=== PATIENT | female | born 1995 | race Caucasian/White ===

== ENCOUNTER 2016-08-29 15:09 | Inpatient (IN) | payer MEDICAID ==
[~2016-08-29] VITALS: Ht 152.4 cm; Wt 83.9 kg
[~2016-08-29 15:09] MED LIST: LACTATED RINGER'S 1,000 ML IV PRN
[2016-08-29] MEDS ORDERED: OXYTOCIN 30 UNITS/LR 500 ML IV SCH (15:30)
[2016-08-29] MEDS ORDERED: CARBOPROST 250 MCG INJ IM PRN (15:30)
[2016-08-29] MEDS ORDERED: ACETAMINOPHEN/CODEINE #3 TAB PO PRN (15:30)
[2016-08-29] MEDS ORDERED: MISOPROSTOL 200 MCG TAB PR PRN (15:30)
[2016-08-29] MEDS ORDERED: BUTORPHANOL 2 MG INJ IV PRN ×2 (15:30)
[2016-08-29] MEDS ORDERED: METHYLERGONOVINE 0.2 MG INJ IM PRN (15:30)
[2016-08-29] MEDS ORDERED: IBUPROFEN 600 MG TAB PO PRN (15:30)
[2016-08-29] MEDS ORDERED: OXYTOCIN 30 UNITS/LR 500 ML IV PRN (15:30)
[2016-08-29] MEDS ORDERED: LIDOCAINE 1% (MPF) 30 ML INJ INJ PRN (15:30)
[2016-08-29 15:48] VITALS: Ht 152.4 cm; Wt 83.9 kg
[2016-08-29 15:49] VITALS: BP 118/73; PULSE 115; RESP 20
--- NOTE | 2016-08-29 16:14 | TRIAGE ---
OB Triage Datetime Report Generated by CPN: 08/29/2016 16:14 Datetime: 08/29/2016 15:40 Labor Evaluation Frequency: 4-6 Monitor Mode: External Duration (sec)2399: 60-120 Quality: Strong Pattern: Normal: <= 5 Contractions in 10 Minutes Resting Tone [place]: Relaxed Heart Rate FHR Baseline Rate: 155 Monitor Mode: External US Variability: Moderate 6-25 bpm Accelerations: 15X15 Decelerations: Variable Category: Category II Datetime: 08/29/2016 15:37 Comments: LOSS OF CONTACT Datetime: 08/29/2016 15:32 Pain Assessment Pain Scale: 8 Pain Presence: Intermittent Pain Type: Contraction Pain Location: Abdomen; Back Pain Goal: 2 Pain Relief Measures: Comfort Measures Datetime: 08/29/2016 15:23 Maternal Assessment Level of Consciousness: Fully Conscious DTR's/Clonus: DTRs 2+; No Clonus Headache: Denies Blurred Vision: No Respiratory Effort: Unlabored; Regular Rhythm; Equal Expansion Breath Sounds, Left: Clear and Equal Breath Sounds, Right: Clear and Equal Nausea/Vomiting: Denies RUQ Epigastric Pain: Denies Facial Edema: None Fall Risk Assessment History of Falling: (0) No Secondary Diagnosis: (0) No Ambulatory Aid: (0) Bedrest/Nurse Assist IV Therapy: (0) No Gait: (0) Normal/Bedrest/Immobile Mental Status: (0) Oriented to Own Ability Fall Score: 0 Fall Risk Score Definition: No Risk: No action required Datetime: 08/29/2016 15:22 Stage of : OB Triage Maternal Assessment Level of Consciousness: Fully Conscious DTR's/Clonus: DTRs 2+; No Clonus Headache: Denies Blurred Vision: No Respiratory Effort: Unlabored; Regular Rhythm; Equal Expansion Breath Sounds, Left: Clear and Equal Breath Sounds, Right: Clear and Equal Nausea/Vomiting: Denies RUQ Epigastric Pain: Denies Lower Extremities Edema: Bilateral Lower Extremities Degree: 1+ Upper Extremities Edema: None Degree: None Facial Edema: None Temperature Route: Axillary Fall Risk Assessment History of Falling: (0) No Secondary Diagnosis: (0) No Ambulatory Aid: (0) Bedrest/Nurse Assist IV Therapy: (0) No Gait: (0) Normal/Bedrest/Immobile Mental Status: (0) Oriented to Own Ability Fall Score: 0 Fall Risk Score Definition: No Risk: No action required Datetime: 08/29/2016 15:21 Time of Arrival: 08/29/2016 15:01 EGA: 38.0 Arrived By: Ambulatory Arrived From: Home Chief Complaint: uc's (Annotations: Data stored by CPN on behalf of user) Movement: Present Contractions: Irregular Time Contractions Began: 08/28/2016 13:00 Contractions: 4-6 Rupture of Membranes: Ruptured Vaginal Bleeding: Normal Show Vaginal Discharge: Present Recent Sexual Intercouse: Denies Abdominal Trauma: Not Applicable Patient Complaints: Contractions; Back Pain Time Provider Notified: 08/29/2016 15:29 Provider Notified: DR. LARSEN Initial Plan: SVE, nst Datetime: 08/29/2016 15:17 Vaginal Exam Dilatation (cms): 1.5 Effacement (%): 80 Station: -3 Exam By: MICA Cervix, Consistency: Soft
[2016-08-29] MEDS ORDERED: PRENAT PO (16:31)
--- NOTE | 2016-08-29 17:17 | RADRPT ---
PROCEDURE: US biophysical profile. CLINICAL INDICATION: Decreased motion. TECHNIQUE: Multiple sonographic images of the uterus were obtained. The images were revi ewed on a PACS workstation. COMPARISON: No prior studies are available for comparison. FINDINGS: There is a single live intrauterine gestation. heart rate is 150 beats per minute. The position is cephalic. The placenta is anterior grade II with no abruption or previa. The NICOLETTE is 13.9 cm. (Normal = 5-20 cm.) Breathing Movement: 2 Gross Body Movement: 2 Tone: 2 Qualitative Amniotic Fluid Volume: 2 TOTAL: 8 IMPRESSION: 1. The biophysical score is 8/8. RPTAT: QQ .Leonel Antonio MD, MD Date Time Electronically viewed and signed by .Leonel Antonio MD, on 08/29/2016 17:16 .R/
[2016-08-29] MEDS: LACTATED RINGER'S 1,000 ML IV SCH (18:54)
[2016-08-29 18:57] LABS: ADD SCAN DIFF NO
[2016-08-29 19:05] LABS: BASOPHILS % 0.2 % (0.0-2.0); EOSINOPHILS # 0.1 10^3/ul (0.0-0.5); EOSINOPHILS % 0.7 % (0.0-7.0); HEMATOCRIT 34.9 % (37.0-47.0); HEMOGLOBIN 11.9 g/dl (12.0-16.0); LYMPHOCYTES % 16.2 % (15.0-51.0); MEAN CORPUSCULAR HEMOGLOBIN 30.1 pg (29.0-33.0); MEAN CORPUSCULAR HGB CONC 34.1 g/dl (32.0-37.0); MEAN CORPUSCULAR VOLUME 88.1 fl (82.0-101.0); MEAN PLATELET VOLUME 12.3 fl (7.4-10.4); MONOCYTES % 7.9 % (0.0-11.0); NEUTROPHILS % 74.6 % (39.0-77.0); PLATELET COUNT 223 10^3/UL (140-415); RED BLOOD COUNT 3.96 10^6/ul (4.20-5.40); RED CELL DISTRIBUTION WIDTH 14.6 % (11.5-14.5); WHITE BLOOD COUNT 12.1 10^3/ul (4.8-10.8)
[2016-08-29 20:18] LABS: PROTIME 12.4 Sec (12.2-14.2)
[2016-08-29 20:19] LABS: INR 0.92; PARTIAL THROMBOPLASTIN TIME 27.5 Sec (25.0-35.0)
[2016-08-30] MEDS: LACTATED RINGER'S 1,000 ML IV SCH (00:53)
[2016-08-30] MEDS ORDERED: MINERAL OIL LIGHT 10 ML VIAL TOP ONE (04:30)
[2016-08-30] MEDS ORDERED: MINERAL OIL LIGHT 10 ML VIAL TOP SCH (04:30)
[2016-08-30] MEDS: OXYTOCIN 30 UNITS/LR 500 ML IV SCH ×2 (04:51→06:20)
[2016-08-30] MEDS ORDERED: LACTATED RINGER'S 1,000 ML IV* SCH (05:48)
[2016-08-30] MEDS ORDERED: BENZOCAINE 20% 56 ML SPRAY TOP PRN (06:00)
[2016-08-30] MEDS ORDERED: WITCH HAZEL/GLYCERIN PAD PR PRN (06:00)
[2016-08-30] MEDS ORDERED: MISOPROSTOL 200 MCG TAB PR PRN (06:00)
[2016-08-30] MEDS ORDERED: OXYTOCIN 30 UNITS/LR 500 ML IV PRN (06:00)
[2016-08-30] MEDS ORDERED: ONDANSETRON 4 MG INJ IV PRN (06:00)
[2016-08-30] MEDS ORDERED: DIPHENHYDRAMINE 25 MG CAP PO PRN (06:00)
[2016-08-30] MEDS ORDERED: DIBUCAINE 1% 30 GM OINT PR PRN (06:00)
[2016-08-30] MEDS ORDERED: LANOLIN 7 GM TUBE TOP PRN (06:00)
[2016-08-30] MEDS ORDERED: METHYLERGONOVINE 0.2 MG INJ IM PRN (06:00)
[2016-08-30] MEDS: IBUPROFEN 600 MG TAB PO SCH ×2 (06:00→12:00)
[2016-08-30] MEDS ORDERED: CARBOPROST 250 MCG INJ IM PRN (06:00)
[2016-08-30 06:20] VITALS: BP 117/63; PULSE 80; RESP 18
--- NOTE | 2016-08-30 06:30 | HP ---
Date/Time of Note Date/Time of Note DATE: 08/30/16 TIME: 06:22 OB - History Hx of Present Free Text/Dictation Patient seen per Dr. Bermudez request. FHR: Category I. SVE: /+1/ceph. Recommended start pushing. H&P and exam on admission: 20 Year-old G1 with SIUP at 38 1/7 weeks presents with a chief complaint of leakage of fluid since 12:00 noon yesterday. She has been receiving her care with Dr. Bermudez. She states good movement. She denies nausea, vomiting, shortness of breath, chest pain, and abdominal pain between contractions, headache, visual changes, vaginal bleeding. : 1 Care: Good Care Ultrasounds: Normal mid trimester US Obstetrical Complications: None Medical Complications: None Past Family/Social History * Past Medical, Surgical, Family and Obstetric Histories reviewed from chart. Blood Type: O+ Rubella: immune RPR/VDRL: Negative GBS Status: Negative HBsAG: Negative OB Admission Exam Vital Signs Vital Signs Vital Signs Date Time Temp Pulse Resp B/P Pulse Ox O2 Delivery O2 Flow Rate FiO2 08/29/16 15:49 99.2 115 20 118/73 98 Room Air Physical Exam HEENT: WNL Heart: Rhythm Normal Lungs: Clear Abdomen: WNL Extremities: Normal Cervical Dilatation: 2cm Effacement: 50% Station: -2 Membranes: Ruptured Amniotic Fluid: Clear Heart Rate: 140's Accelerations: Accelerations Present Decelerations: No Decelerations Varibility: Moderate Contractions on Admission: 6-10 Minutes Apart Intensity: Moderate Last 72 hours Lab Results CBC & BMP 08/29/16 18:00 OB Assessment/Plan Other plan: 20 Year-old G1 with SIUP at 38 1/7 weeks with SROM - FHR: No sign of metabolic acidosis- Category I - Continious EFM, toco - CBC, blood type and screen - Analgesia options with R/B/A discussed in detail with patient. She is not interested - Please see the orders - O+/Rubella: Immune/GBS negative Admission, procedures, expectations, risks and possible complications have been discussed in detail with the patient. Risk of vaginal delivery including but not limited to bleeding, infection, cervical laceration, placental retention, injury to fetus, blood transfusion, blood transfusion related infection, risk of anesthesia, adhesion, cervical laceration, episiotomy/laceration, possible delivery with risk of bleeding, infection, injury to other organs ( bowel, bladder, ureter, vessels, nerves), injury to fetus, blood transfusion, blood transfusion related infection, risk of anesthesia, scar and hernia formation, needs for future , removal of uterus or any other indicated surgery discussed with the patient. She expressed understanding and repeats the risks. All of her questions were answered; all appropriate consents will be signed. PHYSICIAN'S VERIFICATION OF INFORMED CONSENT: The patient was counseled regarding the procedure, its indications, risks, potential complications and alternatives and any questions were answered. Consent was obtained. PLANNED PROCEDURE/TREATMENT: Vaginal delivery with possible vacuum/forceps delivery episiotomy, repair of laceration possible delivery PHYSICIAN'S VERIFICATION OF INFORMED CONSENT FOR BLOOD TRANSFUSION: There is a reasonable possibility that blood transfusion will be necessary as a result of the patient's procedure. I have discussed the following with the patient/patient's legal videotape sales representative: An explanation of the benefits and risks of the transfusion of blood or blood products and the possible alternatives. Al questions have been answered to the patient's/patients legal representatives satisfaction. INFORMED CONSENT: The patient has been informed of: - The nature of the proposed care, treatment, services, medic- Potential benefits, risks or side effects, including potential problems related to recuperation. - The likelihood of achieving care treatment and service goals. - Reasonable alternatives to the proposed care, treatment and service. - The relevant risks, benefits and side effects related to alternatives, including the possible results of not receiving care, treatment and services. - When indicated, any limitations on the confidentiality of information learned from or about the patient. - If appropriate, the risks, benefits and alternatives of the drugs to be used for sedation/analgesia including moderate sedation. - If appropriate, patient has been provided information on the risks, benefits and alternatives to the transfusion of blood and/or blood products. OLIVIA PEREZ Aug 30, 2016 06:30
--- NOTE | 2016-08-30 06:34 | LDN ---
Date/Time of Note Date/Time of Note DATE: 08/30/16 TIME: 06:30 Delivery Summary 20 y/o G1 with SIUP at 38 1/7 weeks delivered a female over right mediolat episiotomy at 04: 19. Weight: 6 lbs 7 oz Placenta Delivered: Spontaneously Meconium: none Anesthesia type: Local Estimated blood loss: 280 Sponge & Needle done & correct: Yes All needle counts correct: Yes Any foreign bodies felt in the: No Problems: Delivery Information Sex Infant Sex: female Apgars 1 Minute: 9 5 Minute: 9 10 Minute: 10 Suctioning Nose & mouth suctioned at homa: Yes Umbilical Cord Umbilical cord with: 3 Vessels Cord presentations: no nuchal cord Cord Blood was obtained: Yes OLIVIA PEREZ Aug 30, 2016 06:34
[2016-08-30 08:00] VITALS: BP 110/67
[2016-08-30] MEDS: SENNA/DOCUSATE NA (8.6MG/50MG) TAB PO SCH ×2 (09:00→20:56)
[2016-08-30 12:00] VITALS: BP 114/64; PULSE 89; RESP 18
[2016-08-30 16:00] VITALS: BP 107/65; PULSE 90; RESP 18
[2016-08-30 16:39] VITALS: BP 107/65; PULSE 90; RESP 18
[2016-08-30 20:00] VITALS: BP 111/68; PULSE 96; RESP 18
[2016-08-31 04:00] VITALS: BP 94/57; PULSE 81; RESP 18
[2016-08-31] MEDS: IBUPROFEN 600 MG TAB PO SCH ×4 (06:10→17:39)
[2016-08-31 07:30] VITALS: BP 113/70; PULSE 78; RESP 18
[2016-08-31 08:00] LABS: ADD SCAN DIFF NO
[2016-08-31 08:15] LABS: BASOPHILS % 0.2 % (0.0-2.0); EOSINOPHILS # 0.1 10^3/ul (0.0-0.5); EOSINOPHILS % 0.7 % (0.0-7.0); HEMATOCRIT 30.9 % (37.0-47.0); HEMOGLOBIN 10.1 g/dl (12.0-16.0); LYMPHOCYTES # 2.1 10^3/ul (0.8-2.9); LYMPHOCYTES % 18.6 % (15.0-51.0); MEAN CORPUSCULAR HEMOGLOBIN 28.9 pg (29.0-33.0); MEAN CORPUSCULAR HGB CONC 32.7 g/dl (32.0-37.0); MEAN CORPUSCULAR VOLUME 88.3 fl (82.0-101.0); MONOCYTE # 0.8 10^3/ul (0.3-0.9); MONOCYTES % 7.2 % (0.0-11.0); NEUTROPHIL # 8.4 10^3/ul (1.6-7.5); NEUTROPHILS % 72.9 % (39.0-77.0); PLATELET COUNT 189 10^3/UL (140-415); RED CELL DISTRIBUTION WIDTH 14.9 % (11.5-14.5); WHITE BLOOD COUNT 11.5 10^3/ul (4.8-10.8)
[2016-08-31] MEDS: SENNA/DOCUSATE NA (8.6MG/50MG) TAB PO SCH ×2 (09:00→21:00)
[2016-08-31 16:15] VITALS: BP 109/56; PULSE 84; RESP 19
[2016-08-31 19:45] VITALS: BP 115/60; PULSE 115; RESP 20
[2016-08-31] MEDS: ACETAMINOPHEN 325 MG TAB PO PRN (20:04)
[2016-09-01 00:15] VITALS: BP 122/72; PULSE 117; RESP 20
[2016-09-01] MEDS: IBUPROFEN 600 MG TAB PO SCH ×4 (00:54→17:17)
[2016-09-01] MEDS ORDERED: GENTAMICIN 80 MG INJ IV SCH (02:00)
[2016-09-01 02:24] LABS: ADD SCAN DIFF NO
[2016-09-01 02:29] LABS: BASOPHILS % 0.2 % (0.0-2.0); EOSINOPHILS # 0.1 10^3/ul (0.0-0.5); EOSINOPHILS % 0.4 % (0.0-7.0); HEMATOCRIT 31.4 % (37.0-47.0); HEMOGLOBIN 10.5 g/dl (12.0-16.0); LYMPHOCYTES % 7.6 % (15.0-51.0); MEAN CORPUSCULAR HEMOGLOBIN 29.3 pg (29.0-33.0); MEAN CORPUSCULAR HGB CONC 33.4 g/dl (32.0-37.0); MEAN CORPUSCULAR VOLUME 87.7 fl (82.0-101.0); MEAN PLATELET VOLUME 11.9 fl (7.4-10.4); MONOCYTES % 7.6 % (0.0-11.0); NEUTROPHIL # 11.5 10^3/ul (1.6-7.5); NEUTROPHILS % 83.6 % (39.0-77.0); PLATELET COUNT 215 10^3/UL (140-415); RED BLOOD COUNT 3.58 10^6/ul (4.20-5.40); RED CELL DISTRIBUTION WIDTH 14.5 % (11.5-14.5); WHITE BLOOD COUNT 13.7 10^3/ul (4.8-10.8)
[2016-09-01 02:36] LABS: POTASSIUM 3.4 mmol/L (3.5-5.1)
[2016-09-01 02:39] LABS: CREATININE 0.48 mg/dl (0.44-1.00)
[2016-09-01 02:40] LABS: CALCIUM 8.9 mg/dl (8.4-10.2)
[2016-09-01] MEDS ORDERED: CLINDAMYCIN 900 MG/D5W (PMX) 50 ML IVPB SCH (03:00)
[2016-09-01] MEDS ORDERED: CLINDAMYCIN 900 MG INJ IV SCH (03:00)
[2016-09-01] MEDS: GENTAMICIN 80 MG/NS (PMX) 50 ML IVPB SCH ×3 (03:41→18:36)
[2016-09-01 03:45] VITALS: BP 99/58; PULSE 102; RESP 18
[2016-09-01 07:30] VITALS: BP 102/58; PULSE 94; RESP 18
--- NOTE | 2016-09-01 08:18 | RADRPT ---
PROCEDURE: XR Chest. CLINICAL INDICATION: Fever TECHNIQUE: PA and lateral views of the chest were obtained. COMPARISON: None. FINDINGS: No focal airspace opacification, pleural effusion or pneumothorax is seen. The cardiomediastinal si lhouette is within normal limits for size. The osseous structures are unremarkable. IMPRESSION: No radiographic evidence of acute cardiopulmonary disease. RPTAT: HH .Carolina Ayala MD, MD Date Time Electronically viewed and signed by .Carolina Ayala MD, on 09/01/2016 08:18 .G/
[2016-09-01] MEDS: SENNA/DOCUSATE NA (8.6MG/50MG) TAB PO SCH ×2 (09:00→21:53)
[2016-09-01] MEDS ORDERED: DIPHTH/TET/ACEL PERTUSS (ADULT) 0.5 ML VIAL IM* ONE (09:00)
[2016-09-01] MEDS ORDERED: INFLUENZA VIRUS VACCINE 0.5 ML SYG IM* ONE (11:30)
--- NOTE | 2016-09-01 11:40 | DS ---
Date/Time of Note Date/Time of Note DATE: 09/01/16 TIME: 11:38 Obstetrical Discharge Record Final Diagnosis Final Diagnosis: Term delivered Vaginal Delivery Obstetrical Delivery: Spontaneous Condition on Discharge Physical Assessment Last Vitals: Post normal vaginal delivery day 2 VS stable abdomen soft uterus firm lochia normal extremity normal patient discharge home with follow-up instruction to be seen at the clinic in 2 weeks Laboratory Tests Test 09/01/16 01:40 Anion Gap 13 Basophils # 0.010^3/ul Basophils % 0.2% Blood Urea Nitrogen 7mg/dl Calcium Level 8.9mg/dl Carbon Dioxide Level 27mmol/L Chloride Level 103mmol/L Creatinine 0.48mg/dl Eosinophils # 0.110^3/ul Eosinophils % 0.4% Glucose Level 103mg/dl Hematocrit 31.4% Hemoglobin 10.5g/dl Lymphocytes # 1.010^3/ul Lymphocytes % 7.6% Mean Corpuscular Hemoglobin 29.3pg Mean Corpuscular Hemoglobin Concent 33.4g/dl Mean Corpuscular Volume 87.7fl Mean Platelet Volume 11.9fl Monocytes # 1.010^3/ul Monocytes % 7.6% Neutrophils # 11.510^3/ul Neutrophils % 83.6% Nucleated Red Blood Cells # 0.010^3/ul Nucleated Red Blood Cells % 0.0/100WBC Platelet Count 38427^3/UL Potassium Level 3.4mmol/L Red Blood Count 3.5810^6/ul Red Cell Distribution Width 14.5% Sodium Level 140mmol/L White Blood Count 13.710^3/ul Current Medications Medications (Trade) Dose Ordered Sig/Rosa Route PRN Reason Start Time Stop Time Status Last Admin Dose Admin Lactated Ringer's (Lr) 1,000 ml @ 125 mls/hr Q8H IV 08/29/16 15:30 08/31/16 07:43 DC 08/30/16 00:53 Butorphanol Tartrate (Stadol) 1 mg Q2H PRN IV PAIN 08/29/16 15:30 08/31/16 07:43 DC Butorphanol Tartrate (Stadol) 2 mg Q2H PRN IV PAIN 08/29/16 15:30 08/31/16 07:43 DC 08/29/16 23:36 Lidocaine 30 ml 30 ml ONCE PRN INJ EPISIOTOMY/TEARING 3/13/17 15:30 08/31/16 07:43 DC Oxytocin/Lactated Ringer's 500 ml @ 125 mls/hr ONCE -MAY REPEAT X1 IV 08/29/16 15:30 08/31/16 07:43 DC 08/30/16 04:27 Oxytocin/Lactated Ringer's 500 ml @ 125 mls/hr ONCE IV 08/29/16 15:30 08/31/16 07:43 DC 08/30/16 06:20 Ibuprofen (Motrin) 600 mg ONCE PRN PO Mild Pain (Pain Score 1-3) 08/29/16 15:30 Acetaminophen/ Codeine Phosphate 2 tab 2 tab ONCE PRN PO Moderate to Severe Pain (4-10) 08/29/16 15:30 08/31/16 07:43 DC Lactated Ringer's 1,000 ml @ 2,000 mls/hr Q30M PRN IV PRE-EPIDURAL BOLUS 08/29/16 15:00 08/31/16 07:43 DC Oxytocin/Lactated Ringer's 500 ml @ 0 mls/hr ONCE PRN IV For Hemorrhage Management 08/29/16 15:30 08/31/16 07:43 DC Methylergonovine Maleate (Methergine) 0.2 mg ONCE PRN IM VAGINAL BLEEDING 08/29/16 15:30 08/31/16 07:43 DC 08/30/16 04:52 Carboprost Tromethamine (Hemabate) 250 mcg ONCE PRN IM VAGINAL BLEEDING 08/29/16 15:30 08/31/16 07:43 DC Misoprostol (Cytotec) 1,000 mcg ONCE PRN AL VAGINAL BLEEDING 08/29/16 15:30 08/31/16 07:43 DC 08/30/16 04:53 Mineral Oil (Muri-Lube) ONCE ONCE TOP 08/30/16 04:30 08/30/16 04:30 DC Mineral Oil ONCE TOP 08/30/16 04:30 08/31/16 04:29 DC Lactated Ringer's (Lr) 1,000 ml @ 125 mls/hr Q8H IV* 08/30/16 05:48 08/31/16 07:43 DC 08/30/16 10:53 Ibuprofen (Motrin) 600 mg Q6 PO 08/30/16 06:00 09/01/16 05:31 Ondansetron HCl (Zofran Inj) 4 mg Q6H PRN IV NAUSEA AND/OR VOMITING 08/30/16 06:00 Diphenhydramine HCl (Benadryl) 25 mg Q6H PRN PO PRURITUS 08/30/16 06:00 Senna/Docusate Sodium (Senokot-S) 1 tab BID PO 08/30/16 09:00 08/30/16 20:56 Witch Abril/ Glycerin (Tucks Pads) 1 pad BEDSIDE MEDICATION PRN AL HEMORRHOID/EPISIOTMY PAIN 08/30/16 06:00 Benzocaine (Dermoplast [place]) 1 spray BEDSIDE MEDICATION PRN TOP HEMORRHOID/EPISIOTMY PAIN 08/30/16 06:00 Dibucaine (Nupercainal) 1 applic BEDSIDE MEDICATION PRN AL HEMORRHOID/EPISIOTMY PAIN 08/30/16 06:00 Lanolin ([id number]-Cxwbrp) 1 applic BEDSIDE MEDICATION PRN TOP BEDSIDE FOR MOHAMUD TO NIPPLES 08/30/16 06:00 Diphtheria/ Tetanus/Acell Pertussis (Adacel) 0.5 ml ONCE ONCE IM* 09/01/16 09:00 09/01/16 09:01 DC Acetaminophen 650 mg 650 mg Q4H PRN PO ELEVATED TEMPERATURE 08/30/16 06:00 08/31/16 20:04 Oxytocin/Lactated Ringer's 500 ml @ 0 mls/hr ONCE PRN IV For Hemorrhage Management 08/30/16 06:00 Methylergonovine Maleate (Methergine) 0.2 mg ONCE PRN IM VAGINAL BLEEDING 08/30/16 06:00 Carboprost Tromethamine (Hemabate) 250 mcg ONCE PRN IM VAGINAL BLEEDING 08/30/16 06:00 Misoprostol (Cytotec) 1,000 mcg ONCE PRN AL VAGINAL BLEEDING 08/30/16 06:00 Influenza Virus Vaccine (Fluzone) 0.5 ml ONCE ONCE IM* 09/01/16 11:30 09/01/16 11:31 DC Gentamicin Sulfate (Gentamicin) 80 mg TID IV 09/01/16 02:00 09/01/16 02:00 DC Clindamycin Phosphate 900 mg 900 mg TID IV 09/01/16 03:00 09/01/16 03:00 DC Gentamicin Sulfate 50 ml @ 100 mls/hr Q8H IVPB 09/01/16 02:00 09/01/16 10:51 Clindamycin HCl/ Dextrose (Cleocin 900 Mg/ D5W (Pmx)) 50 ml @ 50 mls/hr Q8H IVPB 09/01/16 03:00 09/01/16 05:29 Voiding: Yes Fundus: Firm Calf Tenderness: No Patient Condition: Good DICKSON LARSEN MD Sep 01, 2016 11:40
--- NOTE | 2016-09-01 11:41 | PD.PPDC ---
BANQUET [employer] COOK Discharge Instruction Condition Patient Condition: Good Activity/Restrictions Activity: Normal Activity May Shower Restrictions: No Exercising No Lifting No Driving No Sexual Activity Nothing in the Vagina No [place] No Tampons, douche Follow-up Follow-up with Physician: 2, Week/Weeks Return to clinic for DIGITAL TECH Instructions: Fever greater than 101 Worsening abdominal pain Excessive Vaginal Bleeding More than 2 pads per hour Unable to tolerate diet OB Instructions: Breast Tenderness Blurried Vision Headache DICKSON LARSEN MD Sep 01, 2016 11:41
[2016-09-01 11:46] VITALS: BP 110/76; PULSE 108; RESP 19
--- NOTE | 2016-09-01 12:05 | QN ---
Documentation Comment Day 2 post normal vaginal delivery, spiked temperature 100.2 on August 31 at approximately 19:45 and another spike of temperature to 102.7 at 00 15 today currently on gentamicin and clindamycin temperature at 8:00 this morning 98.5, urine culture, blood culture. Was ordered by the physician weapons officer naval activity advised to continue present antibiotic therapy till culture result is available. DICKSON LARSEN MD Sep 01, 2016 12:05
[2016-09-01 12:08] LABS: ADD SCAN DIFF NO
[2016-09-01 12:10] LABS: BASOPHILS % 0.2 % (0.0-2.0); EOSINOPHILS # 0.1 10^3/ul (0.0-0.5); EOSINOPHILS % 0.7 % (0.0-7.0); HEMATOCRIT 33.2 % (37.0-47.0); HEMOGLOBIN 11.1 g/dl (12.0-16.0); LYMPHOCYTES # 1.6 10^3/ul (0.8-2.9); LYMPHOCYTES % 11.1 % (15.0-51.0); MEAN CORPUSCULAR HGB CONC 33.4 g/dl (32.0-37.0); MEAN CORPUSCULAR VOLUME 89.7 fl (82.0-101.0); MEAN PLATELET VOLUME 11.6 fl (7.4-10.4); MONOCYTE # 1.2 10^3/ul (0.3-0.9); MONOCYTES % 7.9 % (0.0-11.0); NEUTROPHIL # 11.6 10^3/ul (1.6-7.5); NEUTROPHILS % 79.4 % (39.0-77.0); PLATELET COUNT 211 10^3/UL (140-415); RED CELL DISTRIBUTION WIDTH 14.7 % (11.5-14.5); WHITE BLOOD COUNT 14.6 10^3/ul (4.8-10.8)
[2016-09-01] MEDS: CLINDAMYCIN 900 MG/D5W (PMX) 50 ML IVPB SCH ×2 (13:15→21:53)
[2016-09-01 16:00] VITALS: BP 124/69; PULSE 97; RESP 19
[2016-09-01 20:15] VITALS: BP 100/55; PULSE 118; RESP 20
[2016-09-01] MEDS: ACETAMINOPHEN 325 MG TAB PO PRN (21:53)
[2016-09-02] MEDS: LACTATED RINGER'S 1,000 ML IV SCH ×3 (01:24→17:53)
[2016-09-02] MEDS: GENTAMICIN 80 MG/NS (PMX) 50 ML IVPB SCH ×2 (02:12→09:41)
[2016-09-02] MEDS: ACETAMINOPHEN 325 MG TAB PO PRN (03:57)
[2016-09-02 04:00] VITALS: BP 110/64; PULSE 80; RESP 18
[2016-09-02] MEDS: IBUPROFEN 600 MG TAB PO SCH ×5 (04:53→23:38)
[2016-09-02] MEDS: CLINDAMYCIN 900 MG/D5W (PMX) 50 ML IVPB SCH (06:12)
[2016-09-02 08:15] VITALS: BP 106/55; PULSE 89; RESP 18
[2016-09-02] MEDS: SENNA/DOCUSATE NA (8.6MG/50MG) TAB PO SCH ×2 (09:00→23:39)
[2016-09-02 11:54] LABS: ADD SCAN DIFF NO
[2016-09-02 11:58] LABS: BASOPHILS % 0.2 % (0.0-2.0); EOSINOPHILS # 0.2 10^3/ul (0.0-0.5); EOSINOPHILS % 1.9 % (0.0-7.0); HEMATOCRIT 30.1 % (37.0-47.0); HEMOGLOBIN 10.2 g/dl (12.0-16.0); LYMPHOCYTES # 1.6 10^3/ul (0.8-2.9); LYMPHOCYTES % 13.6 % (15.0-51.0); MEAN CORPUSCULAR HEMOGLOBIN 30.1 pg (29.0-33.0); MEAN CORPUSCULAR HGB CONC 33.9 g/dl (32.0-37.0); MEAN CORPUSCULAR VOLUME 88.8 fl (82.0-101.0); MEAN PLATELET VOLUME 11.3 fl (7.4-10.4); MONOCYTE # 1.2 10^3/ul (0.3-0.9); MONOCYTES % 10.2 % (0.0-11.0); NEUTROPHIL # 8.7 10^3/ul (1.6-7.5); NEUTROPHILS % 73.5 % (39.0-77.0); PLATELET COUNT 212 10^3/UL (140-415); RED BLOOD COUNT 3.39 10^6/ul (4.20-5.40); RED CELL DISTRIBUTION WIDTH 14.7 % (11.5-14.5); WHITE BLOOD COUNT 11.8 10^3/ul (4.8-10.8)
[2016-09-02] MEDS: PIPER-TAZO 3.375 GM IV (PMX) 100 ML IVPB SCH ×3 (14:35→23:39)
--- NOTE | 2016-09-02 14:43 | RADRPT ---
PROCEDURE: US Pelvis. CLINICAL INDICATION: 20-year-old female to assess for retained placenta. TECHNIQUE: Multiple sonographic images of the pelvis were obtained utilizing a transabdominal and endovaginal technique. The images were reviewed on a PACS workstation. COMPARISON: Biophysical profile 08/29/2016. FINDINGS: The uterus is visualized and measures 12.7 cm sagittal by 6.5 cm AP by 9 cm transverse.. The endomet rial echo complex is irregular and measures 1.3 cm. There is no evidence for free fluid. The right o vary has a normal echotexture and measures 5.2 x 2.4 by 3.2 cm . The left ovary has a normal echote xture and measures 3.7 x 1.2 by 2 cm. No adnexal masses are noted. IMPRESSION: 1. The major stripe appears slightly asymmetric measuring up to 1.3 cm. Retained products of germaine ption are suspected. (78% specificity with endometrial thickness greater than 10 mm.) RPTAT:AAJJ Physician Carlos A Date Time Electronically viewed and signed by Physician Carlos A on 09/02/2016 14:42 JM/
[2016-09-02 16:36] VITALS: BP 110/62; PULSE 89; RESP 18
[2016-09-02 20:40] VITALS: BP 114/59; PULSE 83; RESP 18
[2016-09-03] VITALS: BP 114/76; PULSE 75; RESP 20
[2016-09-03 04:20] VITALS: BP 106/63; RESP 74
[2016-09-03] MEDS: IBUPROFEN 600 MG TAB PO SCH ×4 (06:48→23:49)
[2016-09-03] MEDS: PIPER-TAZO 3.375 GM IV (PMX) 100 ML IVPB SCH ×4 (06:48→23:49)
[2016-09-03 07:40] LABS: ADD SCAN DIFF NO
[2016-09-03 07:43] LABS: BASOPHILS % 0.3 % (0.0-2.0); EOSINOPHILS # 0.4 10^3/ul (0.0-0.5); EOSINOPHILS % 4.1 % (0.0-7.0); HEMATOCRIT 30.5 % (37.0-47.0); HEMOGLOBIN 10.1 g/dl (12.0-16.0); LYMPHOCYTES # 2.8 10^3/ul (0.8-2.9); LYMPHOCYTES % 27.1 % (15.0-51.0); MEAN CORPUSCULAR HEMOGLOBIN 29.4 pg (29.0-33.0); MEAN CORPUSCULAR HGB CONC 33.1 g/dl (32.0-37.0); MEAN CORPUSCULAR VOLUME 88.7 fl (82.0-101.0); MEAN PLATELET VOLUME 11.6 fl (7.4-10.4); MONOCYTE # 0.9 10^3/ul (0.3-0.9); MONOCYTES % 8.9 % (0.0-11.0); NEUTROPHILS % 58.8 % (39.0-77.0); PLATELET COUNT 252 10^3/UL (140-415); RED BLOOD COUNT 3.44 10^6/ul (4.20-5.40); RED CELL DISTRIBUTION WIDTH 14.8 % (11.5-14.5); WHITE BLOOD COUNT 10.1 10^3/ul (4.8-10.8)
[2016-09-03 08:30] VITALS: BP 130/71; PULSE 75; RESP 18
[2016-09-03] MEDS: LACTATED RINGER'S 1,000 ML IV SCH ×3 (09:00→17:21)
[2016-09-03] MEDS: SENNA/DOCUSATE NA (8.6MG/50MG) TAB PO SCH ×2 (09:00→21:14)
--- NOTE | 2016-09-03 10:15 | PN ---
Date/Time of Note Date/Time of Note DATE: 09/03/16 TIME: 10:14 OB Subjective Subjective Subjective Vital signs stable has been afebrile last 36hours currently on Zosyn with continue with treatment 24 more hours considering discharge tomorrow DICKSON LARSEN MD Sep 03, 2016 10:15
[2016-09-03 16:38] VITALS: BP 127/79; PULSE 79; RESP 18
--- NOTE | 2016-09-03 17:51 | PN ---
DATE: 09/03/2016 SUBJECTIVE: No events overnight. The patient is alert, afebrile, looks comfortable. Denies pain, discomfort. LABORATORY DATA: WBC today 10.1, platelets 252, no shift, no bands. No other labs available. MICROBIOLOGY: Urine culture grew E. coli resistant only to ampicillin. ANTIMICROBIALS: Zosyn. DIAGNOSTICS: Pelvic ultrasound revealed major stripe slightly asymmetric with suspected retained pr oducts of conception. PHYSICAL EXAMINATION: GENERAL: Obese, well-developed, young woman who is alert, in no distress. HEENT: Head atraumatic, normocephalic. Sclerae anicteric. Buccal mucosa pink. NECK: Supple, trachea midline. CHEST: Rise symmetrical. Breath sounds clear. HEART: S1, S2. ABDOMEN: Soft, bowel sounds present. EXTREMITIES: Without cyanosis. ASSESSMENT: 1. Systemic inflammatory response syndrome with fevers and leukocytosis. 2. Escherichia coli urinary tract infection. 3. Status post vaginal delivery. PLAN: The patient remains stable. She is on appropriate antimicrobials. Her ultrasound report ind icates questionable retained products of conception The patient is followed by Dr. Bermudez, who will review it. We will keep her on Zosyn for now and if she is cleared by her BUYING INTERN team, we can send her home on oral Keflex to complete treatment for UTI. Dictated By: PHYLICIA ACOSTA SOLE CEMENTER for LANEY DE LEON/NTS Conf#: [id number] DID#: [id number]
[2016-09-03 19:30] VITALS: BP 133/64; PULSE 83; RESP 20
[2016-09-03] MEDS: ACETAMINOPHEN 325 MG TAB PO PRN (21:13)
[2016-09-04] VITALS: BP 130/65; RESP 20
[2016-09-04] MEDS: LACTATED RINGER'S 1,000 ML IV SCH (01:00)
[2016-09-04 05:01] VITALS: BP 126/75; PULSE 74; RESP 20
[2016-09-04] MEDS: PIPER-TAZO 3.375 GM IV (PMX) 100 ML IVPB SCH ×2 (05:20→12:17)
[2016-09-04] MEDS: IBUPROFEN 600 MG TAB PO SCH ×2 (05:21→12:17)
[2016-09-04 08:00] VITALS: BP 109/67; PULSE 71; RESP 18
[2016-09-04] MEDS: SENNA/DOCUSATE NA (8.6MG/50MG) TAB PO SCH (09:00)
--- NOTE | 2016-09-04 12:12 | DS ---
Date/Time of Note Date/Time of Note DATE: 09/04/16 TIME: 12:10 Obstetrical Discharge Record Final Diagnosis Final Diagnosis: Term delivered Vaginal Delivery Obstetrical Delivery: Spontaneous Complications Infection (UTI) Augmentation: Yes Induction: No Condition on Discharge Physical Assessment Last Vitals: T=98.0 BP 109/67 Voiding: Yes Bowel Movement: Yes Breast: Engorged Fundus: Firm Episiotomy: Intact Calf Tenderness: No Patient Condition: Good (Will go home with a prescription for Keflex 500 QID x 7 days.) CHIO AMADOR MD Sep 04, 2016 12:12
== END 2016-09-04 15:32 | disposition home or self-care (01) | DRG 774 ==
LOC: OBT 15:09 → L-D 15:09 → OBT 15:29 → L-D 15:29 → PP1 08-30 06:16
PROVIDERS: ADMIT Obstetrics & Gynecology; ATTEND Obstetrics & Gynecology
PROC: 10E0XZZ Delivery of Products of Conception, External Approach (ICD-10-PCS; principal; 2016-08-30)
PROC: 0W8NXZZ Division of Female Perineum, External Approach (ICD-10-PCS; 2016-08-30)
DX: O70.9 Perineal laceration during delivery, unspecified (principal); O86.4 Pyrexia of unknown origin following delivery; O86.20 Urinary tract infection following delivery, unspecified; Z37.0 Single live birth; Z3A.38 38 weeks gestation of pregnancy; B96.20 Unspecified Escherichia coli [E. coli] as the cause of diseases classified elsewhere; O73.0 Retained placenta without hemorrhage
CPT/HCPCS: 71020; 76818; 76856; 80048; 85025; 85610; 85730; 86592; 86900; 86901; 87040; 87081; 87086; 87340; 90686; 90715; G0463; J1580; J2210; J2543; J2590; J7120

== ENCOUNTER 2017-06-17 12:18 | Emergency (ER) | END 2017-06-17 16:30 | disposition home or self-care (01) ==

== ENCOUNTER 2017-06-19 08:55 | Emergency (ER) | END 2017-06-19 12:22 | disposition home or self-care (01) ==